=== PATIENT | male | born 1945 | race Caucasian/White ===

== ENCOUNTER 2018-11-29 08:54 | Emergency (ER) | payer MEDICARE ==
[2018-11-29 10:12] LABS: #Basophils 0.1 thou/uL (0.0-0.2); #Eosinphils 0.1 thou/uL (0.0-0.7); #Lymphocytes 1.9 thou/uL (1.20-3.40); #Monocytes 0.5 thou/uL (0.11-0.59); %Basophils 0.7 % (0.0-1.0); %Eosinophils 1.2 % (0.0-10.0); %Lymphocytes 24.7 % (21.0-51.0); %Neutrophils 66.5 % (42.0-75.0); Hemoglobin 16.4 g/dL (14.0-18.0); Mean Corpuscular HGB CONC 33.1 g/dL (32.0-36.0); Mean Corpuscular Hemoglobin 30.6 pg (27.0-31.0); Mean Corpuscular Volume 92.4 fL (78.0-98.0); Mean Platelet Volume 8.7 fL (7.4-10.4); Platelet Count 169 thou/uL (130-400); RBC Distribution Width 11.8 % (11.5-14.5); Red Blood Cell (RBC) Count 5.35 mill/uL (4.70-6.10); White Blood Cell (WBC) Count 7.5 thou/uL (4.8-10.8)
--- NOTE | 2018-11-29 10:37 | RAD ---
TWO VIEW CHEST: Comparison: 07-24-16 History: Shortness of breath and cough for two days. FINDINGS: Single view of the chest shows normal sized cardiomediastinal silhouette. The patient is status post sternotomy. There is no evidence of consolidation, mass, or pleural effusion. Degenerative changes ar e seen in the spine. IMPRESSION: No evidence of acute cardiopulmonary disease. POS: C
== END 2018-11-29 11:41 | disposition home or self-care (01) ==
LOC: ERS 08:54
DX: J20.8 Acute bronchitis due to other specified organisms (principal); I25.10 Atherosclerotic heart disease of native coronary artery without angina pectoris; I10 Essential (primary) hypertension; I25.2 Old myocardial infarction; E11.9 Type 2 diabetes mellitus without complications; E78.5 Hyperlipidemia, unspecified
CPT/HCPCS: 36415; 71045; 82550; 83880; 85025; 87804; 93005; 94640; J7620

== ENCOUNTER 2018-11-29 20:31 | Observation (INO) | payer MEDICARE ==
[~2018-11-29 20:31] MED LIST: ISOVUE-370 76%-LOCM 1 ML ONE
[2018-11-29 22:40] LABS: #Basophils 0.1 thou/uL (0.0-0.2); #Eosinphils 0.1 thou/uL (0.0-0.7); #Lymphocytes 2.1 thou/uL (1.20-3.40); #Monocytes 0.8 thou/uL (0.11-0.59); #Neutrophils 5.7 thou/uL (1.40-6.50); %Basophils 0.8 % (0.0-1.0); %Eosinophils 1.3 % (0.0-10.0); %Monocytes 9.4 % (0.0-10.0); %Neutrophils 64.5 % (42.0-75.0); Hemoglobin 16.2 g/dL (14.0-18.0); Mean Corpuscular HGB CONC 32.6 g/dL (32.0-36.0); Mean Corpuscular Hemoglobin 30.4 pg (27.0-31.0); Mean Corpuscular Volume 93.2 fL (78.0-98.0); Mean Platelet Volume 8.6 fL (7.4-10.4); Platelet Count 169 thou/uL (130-400); RBC Distribution Width 11.8 % (11.5-14.5); Red Blood Cell (RBC) Count 5.35 mill/uL (4.70-6.10); White Blood Cell (WBC) Count 8.8 thou/uL (4.8-10.8)
[2018-11-29 22:45] LABS: INR-International Normal Ratio 1.1; PTT 28.3 SEC (22.9-36.1); Prothrombin Time 13.9 SEC (12.0-14.7)
[2018-11-29 23:07] LABS: ALT (SGPT) 42 U/L (8-55); AST (SGOT) 23 U/L (5-34); Albumin 4.1 g/dL (3.4-4.8); Alkaline Phosphatase 57 U/L (40-150); Anion Gap 14 mmol/L (10-20); BUN (Urea Nitrogen) 14 mg/dL (8.4-25.7); Bilirubin, Total 1.1 mg/dL (0.2-1.2); CK (CPK) 268 U/L (30-200); Calc. Creatinine Clearance 0 mL/min (70-130); Calcium 9.1 mg/dL (7.8-10.44); Carbon Dioxide 22 mmol/L (23-31); Chloride 108 mmol/L (98-107); Estimated GFR-MDRD 85; Globulin 2.5 g/dL (2.4-3.5); Glucose 103 mg/dL (83-110); Potassium 3.9 mmol/L (3.5-5.1); Protein, Total 6.6 g/dL (5.8-8.1); Sodium 140 mmol/L (136-145)
--- NOTE | 2018-11-29 23:37 | CT ---
CT OF THE BRAIN WITHOUT CONTRAST: 11/29/18 HISTORY: Dysphagia. Anxiety. COMPARISON: CT brain from 2016. FINDINGS: No acute hemorrhage or infarct. No midline shift or mass effect. Ventricular size and extra-axial CSF spaces are normal. The calvarium is intact. Paranasal sinuses and mastoids are clear. IMPRESSION: No acute intracranial abnormality. POS: TOM
--- NOTE | 2018-11-30 00:03 | CT ---
CT NECK SOFT TISSUE WITH CONTRAST: 11/29/18 HISTORY: Dysphagia. COMPARISON: None. FINDINGS: Moderate degenerative disease of the cervical spine with facet arthropathy at C4-5 causing degenerati ve grade I anterolisthesis. C5-6 and C6-7, circumferential disc osteophyte complexes are present. Lung apices are clear. Thyroid is unremarkable. No cervical adenopathy. Prevertebral soft tissues are normal. No mucosal based mass is appreciated. Glottis appears normal. Epiglottis appears normal. The pharynx and hypopharynx are normal. There is some small calcifications in the palatine tonsils bilaterally which are not enlarged. The na sopharyngeal tonsils are normal as well as the lingual tonsils. Submandibular glands are normal. IMPRESSION: Normal exam. POS: KIMANI
[2018-11-30] MEDS ORDERED: Dexamethasone 10 MG/ML VIAL ONE (00:29)
[2018-11-30] MEDS ORDERED: Aspirin Chewable 81 MG TAB ONE (00:29)
[2018-11-30] MEDS ORDERED: Sodium Chloride 0.9% 1,000 ML IV SCH (02:18)
[2018-11-30] MEDS ORDERED: Ondansetron ODT 4 MG TAB SL PRN (02:18)
[2018-11-30] MEDS ORDERED: Ondansetron PF 4 MG/2 ML Vial IVP PRN (02:18)
[2018-11-30 03:03] VITALS: BMI 37.6
--- NOTE | 2018-11-30 03:23 | HP ---
PRIMARY CARE PHYSICIAN: Dr. Mayda Chatman. CHIEF COMPLAINT: Coughing and feeling as if he is choking when coughing HISTORY OF PRESENT ILLNESS: Mr. Adamson is a 73-year-old male with past medical history of coronary artery disease, status post stenting, hypertension, GERD and hypercholesteremia, who presents to the emergency department of feeling as if, his thorat choking and coughing. Reports rash type feeling in his throat. The patient denies any problem with swallowing of food or liquids. The patient reported as if his throat is going to close up. This feeling has been going on for about 48 hours. The patient has cough for one week. The patient has tried Mucinex without any help. The patient denies any chest pain, shortness of breath, abdominal pain, nausea, vomiting or diarrhea. The patient denies any numbness or tingling or weakness in any of his extremities. The patient feels that whenever he has to cough his voice become very course. He just feels as if you know he is going to choke and feels as if his throat is closing, but he stated that he does not have any problems with swallowing of food. The patient in the ER was given dexamethasone. PAST MEDICAL HISTORY: Coronary artery disease, hypertension, hyperlipidemia, and GERD. The patient also reports that he has nasal drainage and feels as if some time his nose has stuff. HOME MEDICATIONS: Omeprazole, aspirin, carvedilol, atorvastatin, Claritin, tamsulosin, and Aleve. ALLERGIES: NO KNOWN ALLERGIES TO DRUGS. FAMILY HISTORY: Heart problems. SOCIAL HISTORY: The patient is . Denied any smoking recently. Occasional alcohol. No drugs. PAST SURGICAL HISTORY: Coronary artery bypass and appendectomy. REVIEW OF SYSTEMS: A 10-point review of systems negative other than mentioned in the HPI. PHYSICAL EXAMINATION: VITAL SIGNS: Blood pressure 131/69, pulse 71, respiration rate 18, temperature 98.6, and O2 saturation 95% on room air. GENERAL: The patient is alert and in no acute distress. HEENT: Head, atraumatic. Nose and throat, no exudate noted, no drainage or bleeding noted. Eyes, extraocular movement intact. Ears, no drainage. NECK: No lymphadenopathy noted. CARDIOVASCULAR: Regular rate and rhythm. No murmur, rubs or gallops. RESPIRATORY: Clear bilaterally. No wheezes or rales noted. ABDOMEN: Soft and nontender. Bowel sounds positive. EXTREMITIES: No edema noted. NEUROLOGICAL: The patient is alert. SKIN: No rashes noted. LABORATORY DATA: INR 1.1 and PT 13.9. WBC 8.8, hemoglobin 16.2, hematocrit 49.9, and platelets 169. Sodium 140, potassium 3.9, chloride 108, carbon dioxide 22, creatinine 0.88, and BUN 14. Troponin 0.02. CT of soft tissue neck and brain negative for any acute abnormality. ASSESSMENT: 1. Suspect bronchitis, viral etiology. 2. Coronary artery disease. 3. Hypertension. 4. Benign prostatic hyperplasia. 5. Gastroesophageal reflux disease. PLAN: 1. The patient's feeling of as if choking while he is coughing likely due to viral infection versus post viral infection. CT neck and head negative for acute abnormality. The patient was given dexamethasone in the ER. We will continue prednisone. Add Benadryl p.r.n., add Magic mouthwash p.r.n., add cough medication with codeine. nebs PRN. We will also add Flonase b.i.d. Strep screen ordered. influenza test neg. Hold off to abx for now. 2. Hypertension. Continue home medication. 3. Coronary artery disease. Continue home medication. 4. ER wanted to admit the patient for dysphagia and to rule out CVA. Patient category denied that he does not have any problem with swallowing or any numbness in his extremities or feeling weak. He does not think so that he has a CVA. On my assessment and after taking the history, the risk for CVA versus TIA is very low. I am not going to order any further workup at this point. We will admit for observations with supportive care. The patient is a full code. Medical power of energy attorney, . Job ID: [id number] MTDD
[2018-11-30] MEDS ORDERED: Albuterol Sulfate 2.5 mg/3 ml Neb NEB PRN (07:00)
[2018-11-30 07:43] VITALS: BP 101/49; TEMP 98.9
[2018-11-30 07:56] LABS: #Lymphocytes 1.4 thou/uL (1.20-3.40); #Monocytes 0.1 thou/uL (0.11-0.59); #Neutrophils 8.2 thou/uL (1.40-6.50); %Basophils 0.2 % (0.0-1.0); %Eosinophils 0.1 % (0.0-10.0); %Lymphocytes 13.9 % (21.0-51.0); %Monocytes 1.5 % (0.0-10.0); %Neutrophils 84.3 % (42.0-75.0); Hemoglobin 16.3 g/dL (14.0-18.0); Mean Corpuscular HGB CONC 32.1 g/dL (32.0-36.0); Mean Corpuscular Hemoglobin 29.8 pg (27.0-31.0); Mean Corpuscular Volume 92.8 fL (78.0-98.0); Mean Platelet Volume 9.2 fL (7.4-10.4); Platelet Count 171 thou/uL (130-400); Red Blood Cell (RBC) Count 5.46 mill/uL (4.70-6.10); White Blood Cell (WBC) Count 9.7 thou/uL (4.8-10.8)
[2018-11-30 08:01] LABS: Anion Gap 13 mmol/L (10-20); BUN (Urea Nitrogen) 12 mg/dL (8.4-25.7); Calc. Creatinine Clearance 127 mL/min (70-130); Calcium 9.5 mg/dL (7.8-10.44); Carbon Dioxide 22 mmol/L (23-31); Chloride 107 mmol/L (98-107); Estimated GFR-MDRD 83; Glucose 150 mg/dL (83-110); Potassium 4.4 mmol/L (3.5-5.1); Sodium 138 mmol/L (136-145)
[2018-11-30] MEDS ORDERED: Aluminum & Magnesium Hydroxide 60 ML, Lidocaine 2% Viscous Solution 30 ML, diphenhydrAM... SSW PRN (08:12)
[2018-11-30] MEDS ORDERED: Acetaminophen/Codeine 30-300mg Tablet PO PRN (08:13)
[2018-11-30] MEDS ORDERED: Ezetimibe 10 MG TAB PO SCH (09:00)
[2018-11-30] MEDS ORDERED: Aspirin 81 mg Enteric Coated Tablet PO SCH (09:00)
[2018-11-30] MEDS ORDERED: Tamsulosin HCl 0.4 MG CAP PO SCH (09:00)
[2018-11-30] MEDS ORDERED: Carvedilol 3.125 MG TAB PO SCH (09:00)
[2018-11-30] MEDS ORDERED: Albuterol Sulfate 2.5 mg/3 ml Neb NEB SCH (11:00)
[2018-11-30] MEDS ORDERED: Atorvastatin Calcium 40 MG TAB PO SCH (21:00)
[2018-12-01] MEDS ORDERED: predniSONE 20 MG TAB PO SCH (08:00)
--- NOTE | 2018-12-02 13:01 | DIS ---
DATE OF ADMISSION: 11/30/2018 DATE OF DISCHARGE: 11/30/2018 DISCHARGE DIAGNOSES: 1. Bronchospasms. 2. Viral bronchitis. 3. Hypertension. 4. Coronary artery disease. 5. Gastroesophageal reflux disease. CONSULTING PHYSICIANS: None. HOSPITAL COURSE: Mr. Adamson is a pleasant 73-year-old man, who has been admitted due to persistent coughing fits resulting in episodes of feeling as if he cannot breathe. At one point, he mentioned difficulty swallowing. Therefore, a CT of the brain had been obtained on initial presentation, which showed no acute intracranial abnormality. The patient seems to be experiencing some anxiety when these coughing episodes ensue, therefore, making him panic and contributing to difficulty catching his breath. Further investigations to assist "dysphagia" included a CT of the neck, which was unremarkable. The glottis appeared normal as well as the epiglottis. The pharynx and hypopharynx were normal as well with no prevertebral soft tissue abnormality and no cervical adenopathy. The patient was given dexamethasone in the ER and continued to receive prednisone once admitted. He was also treated with Magic mouthwash, which he states helped significantly and was given Tylenol with codeine to help suppress his cough. He received DuoNeb treatments and at the time of discharge is feeling significantly better. The patient again has not had any difficulty swallowing throughout his stay and has been without any major complaints. He experienced one coughing fit prior to discharge, which was not as severe as what he felt at home, but again he began to panic once the coughing fits started making him feel like he could not catch his breath. His vital signs have remained stable. On day of discharge, he is medically cleared for discharge home. REVIEW OF SYSTEMS: The patient denies having any fevers, chills, or sweats. Denies having any headaches or dizziness. Reports mild generalized aching in this chest which led to the coughing fits with very minimal discomfort on palpation of his chest anteriorly and posteriorly. No significant chest pain. No hemoptysis. His cough is dry. Denies having any abdominal pain or cramping. Denies any bowel changes or urinary symptoms. PHYSICAL EXAMINATION: GENERAL: The patient appears well developed, well nourished, is in no acute distress. VITAL SIGNS: Temperature 98.9, pulse 87, respirations 18, O2 saturation 92% on room air, blood pressure 101/49. HEENT: Normocephalic and atraumatic. Pupils are equal, round, and reactive to light. Sclerae are without icterus. Oropharynx is clear of any exudates or erythema. NECK: Supple without lymphadenopathy. LUNGS: Clear to auscultation bilaterally without wheezes, rales, or rhonchi. CARDIAC: Regular rate and rhythm without audible murmurs, rubs, or gallops. ABDOMEN: Soft, nontender, nondistended. Normoactive bowel sounds present. EXTREMITIES: No clubbing, cyanosis, or edema. NEUROLOGIC: Alert and oriented x3. SKIN: Without rash or jaundice. INVESTIGATIONS: As mentioned above in HPI. LABORATORY DATA: Full blood count normal. Electrolytes are normal. Troponins are negative x3. CK mildly raised on admission at 268. DISCHARGE MEDICATIONS: The patient given a prescription for Tessalon Perles, Mucinex as well as an albuterol inhaler. He was also given a prescription for prednisone 20 mg p.o. daily x5 days. CONDITION: Stable. ACTIVITY: As tolerated. DIET: Heart healthy. FOLLOWUP: The patient will follow up with his primary care physician within one week. DISPOSITION: The patient cleared for discharge home today on November 30, 2018. The patient's case was discussed with Dr. Thomas who agrees with plan of care as described above. Job ID: [id number]
== END 2018-11-30 11:30 | disposition home or self-care (01) ==
LOC: ERS 20:31 → 2SE 11-30 01:54
PROVIDERS: ADMIT Family Medicine; ATTEND Family Medicine
DX: R13.10 Dysphagia, unspecified (principal); I25.10 Atherosclerotic heart disease of native coronary artery without angina pectoris; I10 Essential (primary) hypertension; E78.00 Pure hypercholesterolemia, unspecified; K21.9 Gastro-esophageal reflux disease without esophagitis; N40.0 Benign prostatic hyperplasia without lower urinary tract symptoms; Z95.5 Presence of coronary angioplasty implant and graft; Z95.1 Presence of aortocoronary bypass graft; Z90.49 Acquired absence of other specified parts of digestive tract; Z79.82 Long term (current) use of aspirin; Z79.52 Long term (current) use of systemic steroids; Z79.899 Other long term (current) drug therapy
CPT/HCPCS: 70450; 70491; 80048; 80053; 82550; 82962; 84484 ×3; 85025 ×2; 85610; 85730; 87081; 87430; 93005; 96374; 99285; G0378 ×2; 36415; 36416; J1100; Q0163; Q9966

== ENCOUNTER 2018-12-01 09:04 | Emergency (ER) | payer MEDICARE ==
[2018-12-01 09:40] LABS: #Monocytes 0.8 thou/uL (0.11-0.59); #Neutrophils 10.4 thou/uL (1.40-6.50); %Basophils 0.3 % (0.0-1.0); %Eosinophils 0.3 % (0.0-10.0); %Lymphocytes 15.1 % (21.0-51.0); %Monocytes 5.7 % (0.0-10.0); %Neutrophils 78.6 % (42.0-75.0); Hemoglobin 15.8 g/dL (14.0-18.0); Mean Corpuscular Hemoglobin 30.3 pg (27.0-31.0); Mean Platelet Volume 8.8 fL (7.4-10.4); Platelet Count 177 thou/uL (130-400); Red Blood Cell (RBC) Count 5.19 mill/uL (4.70-6.10); White Blood Cell (WBC) Count 13.2 thou/uL (4.8-10.8)
[2018-12-01 10:03] LABS: ALT (SGPT) 50 U/L (8-55); AST (SGOT) 25 U/L (5-34); Albumin 4.2 g/dL (3.4-4.8); Alkaline Phosphatase 57 U/L (40-150); Anion Gap 14 mmol/L (10-20); BUN (Urea Nitrogen) 18 mg/dL (8.4-25.7); Calc. Creatinine Clearance 0 mL/min (70-130); Calcium 9.3 mg/dL (7.8-10.44); Carbon Dioxide 25 mmol/L (23-31); Chloride 108 mmol/L (98-107); Estimated GFR-MDRD 75; Globulin 2.3 g/dL (2.4-3.5); Glucose 122 mg/dL (83-110); Potassium 3.9 mmol/L (3.5-5.1); Protein, Total 6.5 g/dL (5.8-8.1); Sodium 143 mmol/L (136-145)
[2018-12-01] MEDS ORDERED: predniSONE 20 MG TAB ONE (10:44)
--- NOTE | 2018-12-01 11:59 | RAD ---
TWO VIEWS OF CHEST: DATE: 12/01/2018. COMPARISON: 11/29/2018. HISTORY: Shortness of breath/dyspnea. FINDINGS: Midline sternotomy wires and mediastinal clips present. No pneumothorax or pleural fluid. No focal consolidation or alveolar edema. There is disk space narrowing and anterior osteophyte formation inv olving the mid thoracic spine. IMPRESSION: No acute findings. POS: TOM
--- NOTE | 2018-12-01 14:26 | CT ---
CT ANGIOGRAM OF THE CHEST: HISTORY: Dyspnea. Difficulty breathing. TECHNIQUE: CT angiogram of the chest is performed in the axial plane. Three-dimensional reformatted images are submitted for interpretation. FINDINGS: No mediastinal mass, lymphadenopathy, or hematoma. Heart size is within normal limits. No pericardi al effusion. There are coronary artery calcifications. The thoracic aorta and upper abdominal aorta have a normal caliber. No periaortic fat stranding. A small amount of reflux of contrast into the inferior vena cava. Correlate for a component of right heart failure. Gallbladder is surgically absent. Visualized upper solid abdominal viscera is unremarkable. Trachea and central bronchi are patent. Calcified nodule in the lingula. Dependent atelectatic change in the left and right lower lobe. Mid dle lobe and right upper lobe are unremarkable. There are no lytic or blastic lesions in the osseous structures. Adequate contrast opacification of the pulmonary arterial system to the level of the segmental arteri es. No filling defect to suggest thromboembolism. IMPRESSION: No evidence of pulmonary artery embolism to the level of the segmental arteries. POS: KIMANI
[2018-12-01] MEDS ORDERED: ISOVUE-370 76%-LOCM 1 ML ONE (16:56)
== END 2018-12-01 12:37 | disposition home or self-care (01) ==
LOC: ERS 09:04
DX: R06.02 Shortness of breath (principal); R06.2 Wheezing; I25.10 Atherosclerotic heart disease of native coronary artery without angina pectoris; I10 Essential (primary) hypertension; Z79.82 Long term (current) use of aspirin; Z79.899 Other long term (current) drug therapy
CPT/HCPCS: 36415; 71046; 71275; 80053; 83880; 84484; 85025; 93005; 94760; J7620; Q9966

== ENCOUNTER 2020-10-22 11:57 | Outpatient (CLI) | payer MEDICARE ==
--- NOTE | 2020-10-22 13:35 | MRI ---
MRI of thethoracic spine without contrast: 10/22/2020 COMPARISON:None available HISTORY:Mid back pain for 10 years TECHNIQUE: Multiplanar multisequence MR imaging of thethoracic spine obtained without contrast. Findings:The sagittal STIR imaging demonstrates no focal area of osseous marrow edema. Thoracic vertebral body height and alignment appears within normal limits. No focal area of abnormal signal intensity is identified within the thoracic cord. T1-2: Mild bilateral facet hypertrophy with no significant central canal or neural foraminal stenosis . T2-3: Mild bilateral facet hypertrophy and mild anterior osteophyte formation with no significant nighat tral canal or neural foraminal stenosis. T3-4: No significant central canal or neural foraminal stenosis. T4-5: There is a right paracentral disc herniation with disc abutting the ventral aspect of the thora cic cord with no evidence for cord flattening or abnormal cord signal intensity. A moderate degree of associated right lateral central canal stenosis is noted. There is no significant neural foraminal stenosis on either side. T5-6: Prominent anterior osteophyte formation. Mild bilateral facet hypertrophy with no significant c entral canal or neural foraminal stenosis. T6-7: No significant central canal or neural foraminal stenosis T7-8: Anterior osteophyte formation with no significant central canal or neural foraminal stenosis T8-9: Anterior osteophyte formation and mild bilateral facet hypertrophy with no significant central canal or neural foraminal stenosis. T9-10: Mild bilateral facet hypertrophy. Anterior osteophyte formation. No significant central canal or neural foraminal stenosis. T10-11: Mild bilateral facet hypertrophy. No significant central canal or neural foraminal stenosis T11-12: Bilateral facet hypertrophy noted with mild/moderate right neural foraminal stenosis. There i s mild central canal stenosis. No significant left neural foraminal stenosis. T12-L1: Anterior osteophyte formation and mild bilateral facet hypertrophy. No central canal stenosis . Mild bilateral neural foraminal stenosis. IMPRESSION:Multilevel thoracic spine degenerative change, most prominent on the right at T4-5.
== END 2020-10-22 11:58 | disposition home or self-care (01) ==
LOC: BICMRI 11:57
PROVIDERS: ATTEND Nurse Practitioner Family
DX: M54.6 Pain in thoracic spine (principal); M47.814 Spondylosis without myelopathy or radiculopathy, thoracic region
CPT/HCPCS: 72146

== ENCOUNTER 2021-08-19 10:02 | Outpatient (CLI) | payer MEDICARE | END 2021-08-19 10:03 | disposition home or self-care (01) | LOC: BICRAD 10:02 | PROVIDERS: ATTEND Nurse Practitioner Family | DX: I48.0 Paroxysmal atrial fibrillation (principal); E78.00 Pure hypercholesterolemia, unspecified | CPT/HCPCS: 36415; 71046; 80053; 80061; 84443 ==

== ENCOUNTER 2022-07-29 16:59 | Inpatient (IN) | payer MEDICARE ==
[2022-07-29 17:17] LABS: #Eosinphils 0.2 thou/uL (0.0-0.7); #Lymphocytes 1.2 thou/uL (1.20-3.40); #Monocytes 0.5 thou/uL (0.11-0.59); #Neutrophils 4.7 thou/uL (1.40-6.50); %Basophils 0.6 % (0.0-1.0); %Eosinophils 2.9 % (0.0-10.0); %Lymphocytes 18.4 % (21.0-51.0); %Monocytes 6.9 % (0.0-10.0); %Neutrophils 71.2 % (42.0-75.0); Hemoglobin 15.6 g/dL (14.0-18.0); Mean Corpuscular HGB CONC 32.3 g/dL (32.0-36.0); Mean Corpuscular Hemoglobin 31.1 pg (27.0-31.0); Mean Corpuscular Volume 96.3 fL (78.0-98.0); Mean Platelet Volume 9.1 fL (7.4-10.4); Platelet Count 146 thou/uL (130-400); RBC Distribution Width 12.5 % (11.5-14.5); Red Blood Cell (RBC) Count 5.02 mill/uL (4.70-6.10); White Blood Cell (WBC) Count 6.6 thou/uL (4.8-10.8)
[2022-07-29 17:41] LABS: ALT (SGPT) 9 U/L (8-55); AST (SGOT) 22 U/L (5-34); Alkaline Phosphatase 57 U/L (40-110); Anion Gap 14 mmol/L (10-20); BUN (Urea Nitrogen) 16 mg/dL (8.4-25.7); Bilirubin, Total 1.5 mg/dL (0.2-1.2); Calc. Creatinine Clearance 0 mL/min (70-130); Calcium 8.5 mg/dL (7.8-10.44); Carbon Dioxide 20 mmol/L (23-31); Chloride 111 mmol/L (98-107); Estimated GFR 59; Glucose 117 mg/dL (83-110); Potassium 4.2 mmol/L (3.5-5.1); Sodium 141 mmol/L (136-145)
[2022-07-29] MEDS ORDERED: Ondansetron PF 4 MG/2 ML Vial IVP PRN (19:54)
[2022-07-29] MEDS ORDERED: Acetaminophen 325 MG TAB PO PRN (19:54)
[2022-07-29 21:03] LABS: Magnesium 1.9 mg/dL (1.6-2.6)
[2022-07-29 21:08] LABS: Troponin I 0.015 ng/mL (< 0.028)
[2022-07-30 00:19] LABS: Troponin I 0.031 ng/mL (< 0.028)
[2022-07-30] MEDS ORDERED: Zolpidem Tartrate 5 MG TAB PO SCH ×3 (01:00→21:00)
[2022-07-30 05:27] LABS: #Eosinphils 0.2 thou/uL (0.0-0.7); #Lymphocytes 1.4 thou/uL (1.20-3.40); #Monocytes 0.6 thou/uL (0.11-0.59); %Basophils 0.5 % (0.0-1.0); %Eosinophils 3.5 % (0.0-10.0); %Lymphocytes 22.8 % (21.0-51.0); %Monocytes 9.6 % (0.0-10.0); %Neutrophils 63.6 % (42.0-75.0); Hemoglobin 14.4 g/dL (14.0-18.0); Mean Corpuscular HGB CONC 32.3 g/dL (32.0-36.0); Mean Corpuscular Hemoglobin 31.1 pg (27.0-31.0); Mean Corpuscular Volume 96.3 fL (78.0-98.0); Mean Platelet Volume 9.8 fL (7.4-10.4); Platelet Count 132 thou/uL (130-400); RBC Distribution Width 12.4 % (11.5-14.5); Red Blood Cell (RBC) Count 4.64 mill/uL (4.70-6.10); White Blood Cell (WBC) Count 6.3 thou/uL (4.8-10.8)
[2022-07-30 06:17] LABS: Anion Gap 11 mmol/L (10-20); BUN (Urea Nitrogen) 14 mg/dL (8.4-25.7); Calc. Creatinine Clearance 0 mL/min (70-130); Calcium 8.3 mg/dL (7.8-10.44); Carbon Dioxide 20 mmol/L (23-31); Chloride 112 mmol/L (98-107); Estimated GFR 78; Glucose 95 mg/dL (83-110); Magnesium 1.9 mg/dL (1.6-2.6); Potassium 3.8 mmol/L (3.5-5.1); Sodium 139 mmol/L (136-145)
[2022-07-30] MEDS ORDERED: Enoxaparin Sodium 40 MG/0.4 ML SYRINGE SC SCH (09:00)
[2022-07-30] MEDS: Amlodipine 5 MG TAB PO SCH (09:06)
[2022-07-30] MEDS: Atorvastatin Calcium 40 MG TAB PO SCH (20:10)
[2022-07-30] MEDS: Apixaban 5 MG TAB PO SCH (20:10)
[2022-07-30] MEDS ORDERED: Lisinopril 20 MG TAB PO SCH (21:00)
[2022-07-31 05:28] LABS: #Eosinphils 0.2 thou/uL (0.0-0.7); #Lymphocytes 1.4 thou/uL (1.20-3.40); #Monocytes 0.8 thou/uL (0.11-0.59); #Neutrophils 4.6 thou/uL (1.40-6.50); %Basophils 0.6 % (0.0-1.0); %Eosinophils 2.8 % (0.0-10.0); %Lymphocytes 19.3 % (21.0-51.0); %Monocytes 11.5 % (0.0-10.0); %Neutrophils 65.9 % (42.0-75.0); Hemoglobin 14.5 g/dL (14.0-18.0); Mean Corpuscular HGB CONC 32.4 g/dL (32.0-36.0); Mean Corpuscular Hemoglobin 31.1 pg (27.0-31.0); Mean Corpuscular Volume 95.9 fL (78.0-98.0); Mean Platelet Volume 9.3 fL (7.4-10.4); Platelet Count 132 thou/uL (130-400); RBC Distribution Width 12.4 % (11.5-14.5); Red Blood Cell (RBC) Count 4.67 mill/uL (4.70-6.10)
[2022-07-31 05:47] LABS: Anion Gap 9 mmol/L (10-20); BUN (Urea Nitrogen) 14 mg/dL (8.4-25.7); Calc. Creatinine Clearance 0 mL/min (70-130); Calcium 8.5 mg/dL (7.8-10.44); Carbon Dioxide 23 mmol/L (23-31); Chloride 109 mmol/L (98-107); Estimated GFR 81; Glucose 98 mg/dL (83-110); Magnesium 1.9 mg/dL (1.6-2.6); Potassium 3.7 mmol/L (3.5-5.1); Sodium 137 mmol/L (136-145)
[2022-07-31] MEDS: Amiodarone 200 MG TAB PO SCH (09:06)
[2022-07-31] MEDS: Apixaban 5 MG TAB PO SCH (09:06)
[2022-07-31] MEDS: Aspirin 81 mg Enteric Coated Tablet PO SCH (09:07)
[2022-07-31] MEDS: Amlodipine 5 MG TAB PO SCH (09:07)
[2022-07-31] MEDS: Tamsulosin HCl 0.4 MG CAP PO SCH (09:07)
[2022-07-31 12:15] VITALS: BMI 34.4
[2022-07-31] MEDS: Atorvastatin Calcium 40 MG TAB PO SCH (20:16)
[2022-07-31] MEDS ORDERED: Zolpidem Tartrate 5 MG TAB PO PRN (20:29)
[2022-08-01 05:21] LABS: Anion Gap 9 mmol/L (10-20); BUN (Urea Nitrogen) 16 mg/dL (8.4-25.7); Calc. Creatinine Clearance 91 mL/min (70-130); Calcium 8.6 mg/dL (7.8-10.44); Carbon Dioxide 26 mmol/L (23-31); Chloride 107 mmol/L (98-107); Cholesterol 114 mg/dl (< 200 Desired); Estimated GFR 72; Glucose 101 mg/dL (83-110); HDL Cholesterol 38 mg/dL (>60 Neg Risk); LDL Cholesterol, Calculated 65 mg/dL; Potassium 3.5 mmol/L (3.5-5.1); Sodium 138 mmol/L (136-145); Triglycerides 56 mg/dL (Less than 150)
[2022-08-01 08:45] VITALS: BP 145/70; TEMP 97.5
[2022-08-01] MEDS: Amiodarone 200 MG TAB PO SCH (09:01)
[2022-08-01] MEDS: Amlodipine 5 MG TAB PO SCH (09:01)
[2022-08-01] MEDS: Tamsulosin HCl 0.4 MG CAP PO SCH (09:02)
[2022-08-01] MEDS: Aspirin 81 mg Enteric Coated Tablet PO SCH (09:02)
[2022-08-01] MEDS ORDERED: Apixaban 5 MG TAB PO SCH (21:00)
== END 2022-08-01 10:10 | disposition home or self-care (01) | DRG 310 ==
LOC: ERS 16:59 → 2SW 19:36 → OBSVTOIN 07-31 16:19
PROVIDERS: ADMIT Internal Medicine; ATTEND Internal Medicine
DX: R00.1 Bradycardia, unspecified (principal); I25.10 Atherosclerotic heart disease of native coronary artery without angina pectoris; I10 Essential (primary) hypertension; E78.5 Hyperlipidemia, unspecified; K21.9 Gastro-esophageal reflux disease without esophagitis; I48.0 Paroxysmal atrial fibrillation; E78.00 Pure hypercholesterolemia, unspecified; I25.5 Ischemic cardiomyopathy; Z98.49 Cataract extraction status, unspecified eye; Z79.82 Long term (current) use of aspirin; Z79.01 Long term (current) use of anticoagulants; Z95.1 Presence of aortocoronary bypass graft; Z90.49 Acquired absence of other specified parts of digestive tract; Z98.890 Other specified postprocedural states; Z87.891 Personal history of nicotine dependence; Z79.899 Other long term (current) drug therapy
CPT/HCPCS: 36415; 71045; 80048; 80053; 80061; 83690; 83735; 83880; 84443; 84484; 85025; 93005; 93306; 94760; 96372; G0378; J1650; U0003; U0005

== ENCOUNTER 2022-08-01 12:54 | Emergency (ER) | payer MEDICARE ==
[2022-08-01 13:57] LABS: #Eosinphils 0.1 thou/uL (0.0-0.7); #Lymphocytes 1.4 thou/uL (1.20-3.40); #Monocytes 0.3 thou/uL (0.11-0.59); %Basophils 0.6 % (0.0-1.0); %Eosinophils 1.3 % (0.0-10.0); %Lymphocytes 23.3 % (21.0-51.0); %Monocytes 5.1 % (0.0-10.0); %Neutrophils 69.8 % (42.0-75.0); Hemoglobin 15.9 g/dL (14.0-18.0); Mean Corpuscular HGB CONC 33.7 g/dL (32.0-36.0); Mean Corpuscular Hemoglobin 31.9 pg (27.0-31.0); Mean Corpuscular Volume 94.5 fl (78.0-98.0); Mean Platelet Volume 9.9 fL (7.4-10.4); Platelet Count 134 thou/uL (130-400); RBC Distribution Width 12.2 % (11.5-14.5); Red Blood Cell (RBC) Count 4.98 mill/uL (4.70-6.10); White Blood Cell (WBC) Count 5.8 thou/uL (4.8-10.8)
[2022-08-01 14:18] LABS: ALT (SGPT) 9 U/L (8-55); AST (SGOT) 21 U/L (5-34); Albumin 3.9 g/dL (3.4-4.8); Alkaline Phosphatase 56 U/L (40-110); Anion Gap 11 mmol/L (10-20); BUN (Urea Nitrogen) 15 mg/dL (8.4-25.7); Bilirubin, Total 1.5 mg/dL (0.2-1.2); Calc. Creatinine Clearance 0 mL/min (70-130); Calcium 9.2 mg/dL (7.8-10.44); Carbon Dioxide 24 mmol/L (23-31); Chloride 105 mmol/L (98-107); Estimated GFR 71; Globulin 2.4 g/dL (2.4-3.5); Glucose 178 mg/dL (83-110); Lipase 42 U/L (8-78); Potassium 3.5 mmol/L (3.5-5.1); Protein, Total 6.3 g/dL (5.8-8.1); Sodium 136 mmol/L (136-145)
== END 2022-08-01 16:05 | disposition home or self-care (01) ==
LOC: ERS 12:54
DX: R55 Syncope and collapse (principal); I25.10 Atherosclerotic heart disease of native coronary artery without angina pectoris; I10 Essential (primary) hypertension; E78.00 Pure hypercholesterolemia, unspecified; Z79.899 Other long term (current) drug therapy; Z79.82 Long term (current) use of aspirin; Z79.01 Long term (current) use of anticoagulants
CPT/HCPCS: 36415; 71045; 83690; 84484; 85025; 93005; 94760

== ENCOUNTER 2022-12-10 19:30 | Outpatient (CLI) | payer MEDICARE | END 2022-12-10 19:31 | disposition home or self-care (01) | LOC: SLEEPLAB 19:30 | PROVIDERS: ATTEND Internal Medicine | DX: G47.33 Obstructive sleep apnea (adult) (pediatric) (principal); R06.83 Snoring | CPT/HCPCS: 95810 ==

== ENCOUNTER → 2023-01-19 | Outpatient (CLI) | payer MEDICARE | LOC: SLEEPLAB 19:30 | PROVIDERS: ATTEND Internal Medicine | DX: G47.33 Obstructive sleep apnea (adult) (pediatric) (principal); E66.9 Obesity, unspecified; I10 Essential (primary) hypertension; R06.83 Snoring | CPT/HCPCS: 95811 ==